=== PATIENT | female | born 1930 ===

== ENCOUNTER 2018-05-10 08:44 | Emergency (ER) | payer OTHER ==
[~2018-05-10] VITALS: Ht 149.9 cm; Wt 49.4 kg
[~2018-05-10 08:44] MED LIST: LISINOPRIL2.5 MG; PRAVACHOL10 MG; PRAVASTATIN SOD40 MG; PREDNISOLONE5 MG; VANATRIP50 MG; VERELAN180 MG; ZANTAC150 M1
== END 2018-05-10 12:08 | disposition home or self-care (01) ==
LOC: ER 08:44
DX: M54.16 Radiculopathy, lumbar region (principal)